=== PATIENT | male | born 1945 | race Two or more races ===

== ENCOUNTER 2018-11-20 19:17 | Inpatient (IN) | payer MEDICARE, OTHER ==
[~2018-11-20] VITALS: Ht 175.3 cm; Wt 81.6 kg
--- NOTE | 2018-11-20 19:20 | NUR ---
PT [id number] FROM HOME C/C SOB X 3 HOURS. ON SCENE PATIENT O2 SAT 78%. PATIENT ARRIVED ON CPAP SAT 90%. PT PLACED ON MONITOR IN BED 8. RT AT BEDSIDE. LOWER EXTREMITY EDEMA NOTED. ABRASION ON NOSE. BILAT UPPER EXTREMITIES SWOLLEN. WILL CONTINUE TO MONITOR.
--- NOTE | 2018-11-20 19:22 | NUR ---
DAUGHTER AT BEDSIDE
--- NOTE | 2018-11-20 19:28 | NUR ---
PT ON BIPAP
--- NOTE | 2018-11-20 19:31 | NUR ---
PER PT DAUGHTER AND SON, PT IS DNR AND DNI. DR. MAZARIEGOS AWARE.
[2018-11-20 19:38] VITALS: BP 121/57
[2018-11-20 19:38] LABS: BASOPHILS % (AUTO) 0.4 % (0.0-2.0); EOSINOPHILS % (AUTO) 0.5 % (0.0-6.0); HEMATOCRIT 33 % (39-51); LYMPHOCYTES # (AUTO) 0.8 /CMM (0.8-4.8); LYMPHOCYTES % (AUTO) 10.7 % (20.0-44.0); MEAN CORPUSCULAR HGB CONC 31 g/dl (31.0-36.0); MEAN CORPUSCULAR VOLUME 95 fL (80-96); MONOCYTES # (AUTO) 0.7 /CMM (0.1-1.30); MONOCYTES % (AUTO) 8.8 % (2.0-12.0); NEUTROPHILS # (AUTO) 6.3 /CMM (1.8-8.9); NEUTROPHILS % (AUTO) 79.6 % (43.0-81.0); PLATELET COUNT (AUTO) 154 /CMM (150-450); RED BLOOD CELL COUNT(AUTO) 3.43 MIL/uL (4.5-6.0); WHITE BLOOD COUNT (AUTO) 7.9 K/uL (4.3-11.0)
[2018-11-20 19:46] LABS: CALCIUM, SERUM 8.4 mg/dL (8.5-10.1); CARBON DIOXIDE 33 mmol/L (21-32); CHLORIDE 96 mmol/L (98-107); CREATININE 2.8 mg/dL (0.6-1.3); GLUCOSE 115 mg/dL (74-106); POTASSIUM 5.5 mmol/L (3.5-5.1); SODIUM SERUM 131 mmol/L (136-145); UREA NITROGEN, BLOOD 22 mg/dL (7-18)
--- NOTE | 2018-11-20 19:46 | NUR ---
RT PLACED PATIENT ON BIPAP ON ORDERED SETTINGS PER MD ORDER. PATIENT TOLERATED CURRENT SETTINGS, WILL CONTINUE TO MONITOR PATIENT. Addendum: 11/20/18 at 1949 by MERI PRABHAKAR RT Amended: Links added.
[2018-11-20 19:59] LABS: ALANINE AMINOTRANSFERASE 11 U/L (12-78); ALBUMIN 3.1 g/dL (3.4-5.0); ALKALINE PHOSPHATASE 73 U/L (46-116); ASPARTATE AMINOTRANSFERASE 21 U/L (15-37); B-TYPE NATRIURETIC PEPTIDE 39089 PG/ML (0-125); BILIRUBIN,DIRECT 0.6 mg/dL (0.0-0.2); BILIRUBIN,TOTAL 1.3 mg/dL (0.2-1.0); TOTAL PROTEIN, SERUM 7.7 g/dL (6.4-8.2)
--- NOTE | 2018-11-20 20:52 | NUR ---
FAMILY AT BEDSIDE
--- NOTE | 2018-11-20 21:17 | NUR ---
GOT BED 321-1
--- NOTE | 2018-11-20 21:30 | NUR ---
REPORT GIVEN TO ASHLEIGH CHAU FOR [facility]
[2018-11-20] MEDS ORDERED: MORPHINE SULFATE INJ 2 MG/ML DISP.SYRIN ONE (21:44)
[2018-11-20] MEDS ORDERED: MORPHINE SULFATE INJ 2 MG/ML DISP.SYRIN IV ONE (22:00)
[2018-11-20 22:30] VITALS: BP 94/44
--- NOTE | 2018-11-20 22:30 | NUR ---
MS MANAGER BUILDING NOTES Patient came to unit via gurney with family members at bedside. Patient is on non- rebreather mask. Patient is non-verbal. As per son, patient is for comfort measures only. Family is requesting only to clean and change the patient as the patient moved his bowels, otherwise, patient will be left comfortable. Noted edema on upper extremities and some skin issues but no pictures taken- family refused. All needs attended to. Safety measures in place. Will continue to monitor
[2018-11-20] MEDS ORDERED: MAG HYDROX/AL HYDROX/SIMETH 30 ML UDC PO PRN (23:00)
[2018-11-20] MEDS ORDERED: SCOPOLAMINE HBR 1 EA PATCH.TD72 TD SCH (23:00)
[2018-11-20] MEDS ORDERED: LORAZEPAM INJ 2 MG/ML VIAL IV PRN (23:00)
[2018-11-20] MEDS ORDERED: MAGNESIUM HYDROXIDE 30 ML UDC PO PRN (23:00)
[2018-11-20] MEDS ORDERED: Z GUARD REMEDY 2 OZ OINT TP PRN (23:00)
[2018-11-20] MEDS ORDERED: ACETAMINOPHEN 650 MG/SUPP.RECT RC PRN (23:00)
[2018-11-20] MEDS ORDERED: ONDANSETRON HCL/PF 4 MG/2 ML VIAL IVP PRN (23:00)
[2018-11-20] MEDS ORDERED: GLYCOPYRROLATE 0.2 MG/ML VIAL IV PRN (23:00)
[2018-11-20] MEDS ORDERED: MORPHINE SULFATE INJ 10 MG/ML DISP.SYRIN ONE (23:25)
--- NOTE | 2018-11-20 23:35 | NUR ---
MSRN FOUND PATIENT NON RESPONSIVE, NO VITAL SIGNS. NO RESPIRATION, NO BRACHIAL. CAROTID PULSE. NO HEART BEAT. PUPILS FIXED, NON REACTIVE TO LIGHT. PRONOUNCED AT 2335. FAMILY AT BEDSIDE. PRIVACY PROVIDED.
--- NOTE | 2018-11-20 23:37 | NUR ---
MS RN NOTES art supervisor Josephine and EVELYN Jimenez notified that the patient
--- NOTE | 2018-11-20 23:55 | NUR ---
RN NOTES [facility] notified. Case #: [id number]
--- NOTE | 2018-11-20 23:58 | NUR ---
RN NOTES Patient's family refused to shroud patient's body
--- NOTE | 2018-11-21 | NUR ---
MS RN NOTES IV line removed with permission from family
--- NOTE | 2018-11-21 00:55 | NUR ---
RN NOTES Patient's body was taken by mortuary accompanied by family
[2018-11-21 01:50] VITALS: BP 99/44
[2018-11-21] MEDS ORDERED: PANTOPRAZOLE 40 MG VIAL IV SCH (09:00)
== END 2018-11-21 00:55 | disposition expired | DRG 291 ==
LOC: ER 19:19 → MED 21:59 → EDBD 21:59
PROVIDERS: ADMIT Registered Nurse; ATTEND Registered Nurse
DX: I13.2 Hypertensive heart and chronic kidney disease with heart failure and with stage 5 chronic kidney disease, or end stage renal disease (principal); J96.01 Acute respiratory failure with hypoxia; N18.6 End stage renal disease; G92 Toxic encephalopathy; I50.33 Acute on chronic diastolic (congestive) heart failure; Z66 Do not resuscitate; Z51.5 Encounter for palliative care; D63.1 Anemia in chronic kidney disease; E87.5 Hyperkalemia; Z99.2 Dependence on renal dialysis; Z95.0 Presence of cardiac pacemaker; K76.89 Other specified diseases of liver; Z95.2 Presence of prosthetic heart valve
CPT/HCPCS: 36415; 71045-TC; 80048-TC; 80076-TC; 83880; 84484-TC; 85025-TC; 87081-TC; A6402; G0378; J2270; J3490; J7030